=== PATIENT | female | born 1995 | race Caucasian/White ===

== ENCOUNTER 2019-04-29 17:41 | Emergency (ER) | payer SELFPAY ==
--- NOTE | 2019-04-29 17:46 | PDOC ---
Rapid Medical Evaluation Medical Evaluation: I have performed a brief in-person evaluation of this patient. The patient presents with a chief complaint of: Fall today while getting out of pedicure chair, landed on L knee Pertinent physical exam findings: LROM L knee, no significant effusion or deformity noted I have ordered the following: L knee xray, motrin The patient will proceed to the ED for further evaluation. 04/29/19 17:44
[2019-04-29] MEDS ORDERED: IBUPROFEN 400 MG TABLET (FP) PO ONE (17:47)
[2019-04-29 17:48] VITALS: BP 121/64; PULSE 100; TEMP 98; BMI 38.9
--- NOTE | 2019-04-29 18:17 | PDOC ---
History of Present Illness - General Chief Complaint: Injury Stated Complaint: FALL KNEE INJURY Time Seen by Provider: 04/29/19 17:44 - History of Present Illness Initial Comments: 04/29/19 18:14 CHIEF COMPLAINT: knee pain HISTORY OF PRESENT ILLNESS: 23 yo F with no significant PMH presents to fast track s/p fall on L knee. Patient reports she was getting her nails done at a salon and was getting into the pedicure chair when she slipped and fell onto her left knee. Patiient denies injury to any other part of her body, no LOC or head trauma. No recent travel or sick contacts. PAST MEDICAL HISTORY: Denies past medical history FAMILY HISTORY: Denies SOCIAL HISTORY: Denies tobacco, alcohol, illicit drug use. SURGICAL HISTORY: Denies ALLERGIES: No known drug allergies REVIEW OF SYSTEMS General/Constitutional: Denies fever or chills. Denies weakness, weight change. HEENT: Denies change in vision. Denies ear pain or discharge. Denies sore throat. Cardiovascular: Denies chest pain or shortness of breath. Respiratory: Denies cough, wheezing, or hemoptysis. Gastrointestinal: Denies nausea, vomiting, diarrhea or constipation. Denies rectal bleeding. Genitourinary: Denies dysuria, frequency, or change in urination. Musculoskeletal: Left knee pain. Denies neck or back pain. Skin and breasts: Denies rash or easy bruising. Neurologic: Denies headache, vertigo, loss of consciousness, or loss of sensation. Psychiatric: Denies depression or anxiety. PHYSICAL EXAM General Appearance: Well-appearing, appropriately dressed. No apparent distress , no intoxication. HEENT: EOMI, PERRLA, normal ENT inspection, normal voice, TMs normal, pharynx normal. No conjunctival pallor. No photophobia, scleral icterus. Neck: Supple. Trachea midline. No tenderness, rigidity, carotid bruit, stridor , lymphadenopathy, or thyromegaly. Respiratory/Chest: Lungs CTAB. No shortness of breath, chest tenderness, respiratory distress, accessory muscle use. No crackles, rales, rhonchi, stridor , wheezing, dullness Cardiovascular: RRR. S1, S2. No JVD, murmur, bradycardia, tachycardia. Vascular Pulses: Dorsalis-Pedis (R): 2+, Dorsalis-Pedis (L): 2+ Gastrointestinal/Abdominal: Normal bowel sounds. Abdomen soft, non-distended. No tenderness or rebound tenderness. No organomegaly, pulsatile mass, guarding , hernia, hepatomegaly, splenomegaly. Lymphatic: No adenopathy, tenderness. Musculoskeletal/Extremities: Developing ecchymosis to anterior left knee. Decreased active ROM to L knee secondary to pain, pain elicited with active ROM. No deformity to L knee. Normal inspection. FROM of all extremities, normal capillary refill. Pelvis Stable. No CVA tenderness. No tenderness to extremities, pedal edema, swelling, erythema or deformity. Integumentary: Appropriate color, dry, warm. 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 Fully oriented, alert. Appropriate mood/affect. Motor strength 5/5. No appreciable EOM palsy, facial droop or sensory deficit. Past History - Past Medical History Allergies/Adverse Reactions: Allergies Allergy/AdvReac Type Severity Reaction Status Date / Time No Known Allergies Allergy Verified 04/29/19 17:48 Home Medications: Ambulatory Orders Ibuprofen 800 mg PO TID #30 tablet 04/29/19 COPD: No - Suicide/Smoking/Psychosocial Hx Smoking History: Never smoked Have you smoked in the past 12 months: No Information on smoking cessation initiated: No Hx Alcohol Use: No Drug/Substance Use Hx: No *Physical Exam - Vital Signs Last Vital Signs Temp Pulse Resp BP Pulse Ox 98 F 100 H 19 121/64 100 04/29/19 17:46 04/29/19 17:46 04/29/19 17:46 04/29/19 17:46 04/29/19 17:46 Medical Decision Making - Medical Decision Making 04/29/19 18:17 23 yo F with no significant PMH presents to fast track s/p fall on L knee. -motrin -knee xray 04/29/19 18:23 patella fracture on knee x-ray- knee immobilizer applied, crutches, ortho referral provided. NSAIDS for pain relief. Advised patient to take medication as prescribed and follow up with orthopedics tomorrow. Advised patient of signs and symptoms for return to ED. Patient verbalized understanding and agrees to plan. *DC/Admit/Observation/Transfer Diagnosis at time of Disposition: Knee fracture, left - Discharge Dispostion Disposition: HOME Condition at time of disposition: Stable Decision to Admit order: No - Prescriptions Prescriptions: Ibuprofen 800 mg PO TID #30 tablet - Referrals Referrals: Terrell Cuevas DO [Staff Physician] - Yann Whitmore MD [Staff Physician] - Feliberto Green MD [Non Staff, Medical] - - Patient Instructions Printed Discharge Instructions: DI for Patella Fracture Additional Instructions: Take your medications as prescribed. You MUST follow up with orthopedics TOMORROW for further management of your fracture. Use your crutches and knee immobilizer and stay off of your left knee until you are able to see the orthopedist. If you develop any new or worsening symptoms, please return to the ER. [place] [facility] medicamentos segn lo recetado. DEBE seguir con el ortopedista MAANA para mas manejo de coates fractura. Use baylee muletas e inmovilizador de rodilla y no usa coates rodilla izquierda hasta que pueda ir al ortopedista. Si desarrolla algn sntoma nuevo o que empeora, regrese a la noreen de emergencias. Print Language: [place] - Post Discharge Activity Forms/Work/School Notes: Back to Work
== END 2019-04-29 19:23 | disposition home or self-care (01) ==
LOC: JERFT 17:41
PROC: 2W3RXYZ Immobilization of Left Lower Leg using Other Device (ICD-10-PCS; principal; 2019-04-29)
DX: S82.092A Other fracture of left patella, initial encounter for closed fracture (principal); W07.XXXA Fall from chair, initial encounter; Y93.E8 Activity, other personal hygiene; Y92.513 Shop (commercial) as the place of occurrence of the external cause; Y99.8 Other external cause status
CPT/HCPCS: 73564-TC-LT-FY; 99282-25